=== PATIENT | female | born 1995 | race Native Hawaiian/Other Pacific Islander ===

== ENCOUNTER 2017-09-29 09:14 | Emergency (ER) | payer SELFPAY ==
[~2017-09-29] VITALS: Ht 162.6 cm; Wt 55.0 kg
[2017-09-29 09:20] VITALS: BP 125/68; PULSE 151; RESP 24; TEMP 100.4; O2SAT 98
--- NOTE | 2017-09-29 09:25 | PD ---
HPI Chief Complaint: Fever Time Seen by Provider: 09:24 Travel History International Travel<30 days: No Contact w/Intl Traveler<30days: No Traveled to known affect area: No History of Present Illness HPI 22-year-old female came to the emergency room with her significant other with history of fever that started this morning. The boyfriend is giving additional history. They are from [place] and here visiting. Patient says that about 2 days ago she was having some abdominal pain and took in an antibiotic pill that was given to her by her doctor in [place]. She took 1 dose only and does not know the name of it. She has some lower abdominal pain yesterday as well but she describes the pain as mild to moderate something she could tolerate. No history of dysuria, hematuria or frequency. This morning she woke up with severe chills and shaking. She vomited once yesterday. No diarrhea. No cough. Patient was tachycardic in triage. She is awake and answering questions. She will walk to the restroom to give a urine sample. She is otherwise a healthy person. [facility], [facility] Past Medical History Narrative Medical List of her past medical, surgical, social and family history is reviewed from the nursing note. ?: Not LMP: SEPTEMBER 2017 Social History Tobacco Use: No Allergies-Medications (Allergen,Severity, Reaction): Coded Allergies: No Known Drug Allergies (Verified Allergy, Unknown, 09/29/17) Comments No known drug allergies. Reported Meds & Prescriptions Reported Meds & Active Scripts Active Macrobid (Nitrofurantoin Monoh/Nitrofur Macro) 100 Mg Cap 100 Mg PO BID 10 Days Narrative Medication List of her home medications reviewed from the nursing note. Review of Systems Except as stated in HPI: all other systems reviewed are Neg General / Constitutional: Positive: Fever, Chills Gastrointestinal: Positive: Abdominal Pain Physical Exam Narrative GENERAL: Awake, alert, moderate distress SKIN: Focused skin assessment warm/dry. HEAD: Atraumatic. Normocephalic. EYES: Pupils equal and round. No scleral icterus. No injection or drainage. ENT: No nasal bleeding or discharge. Dry mucous member. NECK: Trachea midline. No JVD. CARDIOVASCULAR: Regular rate and rhythm. No murmur appreciated. RESPIRATORY: No accessory muscle use. Clear to auscultation. Breath sounds equal bilaterally. GASTROINTESTINAL: Abdomen soft, non-tender, nondistended. Hepatic and splenic margins not palpable. MUSCULOSKELETAL: No obvious deformities. No clubbing. No cyanosis. No edema. NEUROLOGICAL: Awake and alert. No obvious cranial nerve deficits. Motor grossly within normal limits. Normal speech. PSYCHIATRIC: Appropriate mood and affect; insight and judgment normal. Data Data Last Documented VS Vital Signs Date Time Temp Pulse Resp B/P (MAP) Pulse Ox O2 Delivery O2 Flow Rate FiO2 09/29/17 11:01 97.9 105 16 97/53 (68) 100 Room Air Orders Orders Sepsis Workup Initiated (09/29/17 ) Complete Blood Count With Diff (09/29/17 09:36) Comprehensive Metabolic Panel (09/29/17 09:36) Lactic Acid Sepsis Protocol (09/29/17 09:36) Urinalysis - C+S If Indicated (09/29/17 09:36) Blood Culture (09/29/17 09:36) Chest, Single Ap (09/29/17 09:36) Blood Glucose (09/29/17 09:36) Ecg Monitoring (09/29/17 09:36) Iv Access Insert/Monitor (09/29/17 09:36) Oximetry (09/29/17 09:36) Oxygen Administration (09/29/17 09:36) Sodium Chlor 0.9% 1000 Ml Inj (Ns 1000 M (09/29/17 09:36) Sodium Chlor 0.9% 1000 Ml Inj (Ns 1000 M (09/29/17 09:36) Urine Culture (09/29/17 09:30) Ceftriaxone Inj (Rocephin Inj) (09/29/17 10:30) Ed Discharge Order (09/29/17 10:53) Labs Laboratory Tests Test 09/29/17 09:30 09/29/17 09:40 Urine Color YELLOW Urine Turbidity HAZY Urine pH 6.0 Urine Specific [place] 1.013 Urine Protein 100 mg/dL Urine Glucose (UA) NEG mg/dL Urine Ketones NEG mg/dL Urine Occult Blood MOD Urine Nitrite POS Urine Bilirubin NEG Urine Urobilinogen LESS THAN 2.0 MG/DL Urine Leukocyte Esterase LARGE Urine RBC 24 /hpf Urine WBC /hpf Urine WBC Clumps MANY Urine Squamous Epithelial Cells 1 /hpf Urine Bacteria MANY /hpf Urine Mucus MANY /lpf Microscopic Urinalysis Comment CATH-CULTURE IND White Blood Count 13.5 TH/MM3 Red Blood Count 4.67 MIL/MM3 Hemoglobin 11.2 GM/DL Hematocrit 34.4 % Mean Corpuscular Volume 73.7 FL Mean Corpuscular Hemoglobin 24.0 PG Mean Corpuscular Hemoglobin Concent 32.5 % Red Cell Distribution Width 15.6 % Platelet Count 282 TH/MM3 Mean Platelet Volume 8.2 FL Neutrophils (%) (Auto) 88.3 % Lymphocytes (%) (Auto) 7.2 % Monocytes (%) (Auto) 4.0 % Eosinophils (%) (Auto) 0.1 % Basophils (%) (Auto) 0.4 % Neutrophils # (Auto) 11.9 TH/MM3 Lymphocytes # (Auto) 1.0 TH/MM3 Monocytes # (Auto) 0.5 TH/MM3 Eosinophils # (Auto) 0.0 TH/MM3 Basophils # (Auto) 0.1 TH/MM3 CBC Comment DIFF FINAL Differential Comment Blood Urea Nitrogen 9 MG/DL Creatinine 0.96 MG/DL Random Glucose 112 MG/DL Total Protein 7.8 GM/DL Albumin 4.0 GM/DL Calcium Level 8.9 MG/DL Alkaline Phosphatase 73 U/L Aspartate Amino Transf (AST/SGOT) 11 U/L Alanine Aminotransferase (ALT/SGPT) 16 U/L Total Bilirubin 0.8 MG/DL Sodium Level 136 MEQ/L Potassium Level 3.6 MEQ/L Chloride Level 102 MEQ/L Carbon Dioxide Level 26.3 MEQ/L Anion Gap 8 MEQ/L Estimat Glomerular Filtration Rate 74 ML/MIN Lactic Acid Level 1.2 mmol/L MDM Medical Decision Making Medical Screen Exam Complete: Yes Emergency Medical Condition: Yes Medical Record Reviewed: Yes Differential Diagnosis Sepsis, UTI, pneumonia Narrative Course 10:39 AM blood test results are back and patient has some leukocytosis. UA suggestive of significant UTI. Chemistry is within acceptable limits with lactic acid within normal limits. Patient has been given multiple fluid boluses from sepsis protocol standpoint. I have ordered IV Rocephin. I will reassess her. Given the fact that this is a healthy individual with normal lactic acid level if the heart rate has come down I would be comfortable discharging her home. Procedures EKG Prior to Arrival: No Sepsis Criteria SIRS Criteria (2 or more): Heart rate over 90, WBC > 26456, < 4000 or > 10% bands Sepsis Criteria (SIRS+source): Infect source susp/known (UTI) Diagnosis Primary Impression: Pyelonephritis Additional Impression: SIRS (systemic inflammatory response syndrome) Referrals: Primary Care Physician 3 days Additional Instructions: Drink lots of fluid and cranberry juice. Take the antibiotic as per the prescription direction. Return to the emergency room if the condition worsens or any other new concerns. Med/Other Pt SpecificInfo: Prescription(s) given Scripts Nitrofurantoin Monohydrate Macrocrystals (Macrobid) 100 Mg Cap 100 MG PO BID for Infection for 10 Days, #20 CAP 0 Refills Prov: Miguel Mejia MD 09/29/17 Disposition: DISCHARGE HOME Condition: Stable Miguel Mejia MD Sep 29, 2017 09:25
[2017-09-29 09:35] VITALS: BP 121/73; PULSE 142; RESP 18; TEMP 99.7; O2SAT 100
[2017-09-29] MEDS ORDERED: SODIUM CHLOR 0.9% 1000 ML INJ 1,000 ML IV ONE (09:36)
[2017-09-29] MEDS ORDERED: SODIUM CHLOR 0.9% 1000 ML INJ 800 ML IV ONE (09:36)
[2017-09-29 09:40] VITALS: O2SAT 98
--- NOTE | 2017-09-29 09:56 | RADRPT ---
EXAM DATE/TIME: 09/29/2017 09:41 [facility] COMPARISON: No previous studies available for comparison. INDICATIONS : Pelvic pain and fever. MEDICAL HISTORY : None. SURGICAL HISTORY : None. ENCOUNTER: Initial ACUITY: 2 days PAIN SCORE: 0/10 LOCATION: Bilateral chest FINDINGS: A single view of the chest demonstrates the lungs to be symmetrically aerated without evidence of mas s, infiltrate or effusion. The cardiomediastinal contours are unremarkable. Osseous structures are intact. CONCLUSION: No acute disease. Gerald Berman MD on September 29, 2017 at 9:54 Board Certified Radiologist. This report was verified electronically.
[2017-09-29 10:10] LABS: AUTOMATED NEUTROPHIL # 11.9 TH/MM3 (1.8-7.7); BASOPHIL # 0.1 TH/MM3 (0-0.2); BASOPHIL % 0.4 % (0.0-2.0); EOSINOPHIL % 0.1 % (0.0-4.0); HEMATOCRIT 34.4 % (35.0-46.0); HEMOGLOBIN 11.2 GM/DL (11.6-15.3); LYMPH % 7.2 % (9.0-44.0); MEAN CELL VOLUME 73.7 FL (80.0-100.0); MEAN CORPUSCULAR HGB CONC 32.5 % (32.0-36.0); MEAN PLATELET VOLUME 8.2 FL (7.0-11.0); MONOCYTE # 0.5 TH/MM3 (0-0.9); NEUT % 88.3 % (16.0-70.0); PLATELET COUNT 282 TH/MM3 (150-450); RED BLOOD COUNT 4.67 MIL/MM3 (4.00-5.30); RED CELL DISTRIBUTION WIDTH 15.6 % (11.6-17.2); WHITE BLOOD COUNT 13.5 TH/MM3 (4.0-11.0)
[2017-09-29 10:11] LABS: BACTERIA, URINE MANY /hpf; BILIRUBIN, URINE NEG (NEG); BLOOD, URINE MOD (NEG); GLUCOSE,URINE NEG (NEG); KETONE, URINE NEG (NEG); MUCUS URINE MANY /lpf (OCC); NITRITE,URINE POS (NEG); SQUAMOUS EPITHELIAL CELL URINE 1 /hpf (0-5); URINE COLOR YELLOW (YELLW/STRAW); URINE LEUKOCYTE ESTERASE LARGE (NEG); WHITE BLOOD CELL CLUMPS MANY
[2017-09-29 10:19] LABS: ALT (GPT) 16 U/L (9-42); AST (GOT) 11 U/L (16-38); BICARBONATE 26.3 MEQ/L (21.0-32.0); BLOOD UREA NITROGEN 9 MG/DL (7-18); CALCIUM 8.9 MG/DL (8.5-10.1); CHLORIDE 102 MEQ/L (98-107); CREATININE 0.96 MG/DL (0.50-1.00); GLOMERULAR FILTRATION RATE 74 ML/MIN (>89); GLUCOSE,RANDOM 112 MG/DL (74-106); SODIUM (NA) 136 MEQ/L (136-145)
[2017-09-29 10:21] LABS: ALKALINE PHOSPHATASE 73 U/L (45-117); TOTAL BILIRUBIN ADULT 0.8 MG/DL (0.2-1.0); TOTAL PROTEIN 7.8 GM/DL (6.4-8.2)
[2017-09-29] MEDS ORDERED: cefTRIAXone INJ 1,000 MG in SODIUM CHLORIDE 0.9% INJ 100 ML IV ONE (10:30)
[2017-09-29] MEDS ORDERED: MACR100C2 PO (10:43)
[2017-09-29 11:01] VITALS: BP 97/53; PULSE 105; RESP 16; TEMP 97.9; O2SAT 100
== END 2017-09-29 16:15 | disposition home or self-care (01) ==
LOC: NEPE 09:14
DX: N12 Tubulo-interstitial nephritis, not specified as acute or chronic (principal); R65.10 Systemic inflammatory response syndrome (SIRS) of non-infectious origin without acute organ dysfunction; R10.9 Unspecified abdominal pain; R00.0 Tachycardia, unspecified; B96.20 Unspecified Escherichia coli [E. coli] as the cause of diseases classified elsewhere
CPT/HCPCS: 71045; 80053; 81001; 83605; 85025; 87040; 87077; 87086; 87186; 96361; 96374; 99284; J0696; J7030